=== PATIENT | female | born 1955 | race Caucasian/White ===

== ENCOUNTER → 2024-05-14 | Outpatient (CLI) | payer OTHER, SELFPAY ==
[2024-05-14 13:26] LABS: Basophils # (Auto) 0.1 Thou/mm3 (0.0-0.2); Basophils % (Auto) 1 % (0-2.5); Eosinophils # (Auto) 0.1 Thou/mm3 (0.0-0.5); Eosinophils % (Auto) 2 % (0-10); Hematocrit 38.1 % (36.0-46.0); Hemoglobin 12.6 g/dL (12.0-16.0); Immature Granulocytes % (Auto) 0 % (0-0); Immature Granulocytes Auto 0.02 Thou/mm3 (0.00-0.00); Lymphocytes # (Auto) 2.7 Thou/mm3 (1.0-4.8); Lymphocytes % (Auto) 36 % (10-50); Mean Corpuscular HGB Conc 33.1 g/dl (31.0-37.0); Mean Corpuscular Hemoglobin 30.6 pg (25.0-35.0); Mean Corpuscular Volume 93 fL (80-100); Monocytes # (Auto) 0.5 Thou/mm3 (0.0-0.8); Monocytes % (Auto) 7 % (0-12); Neutrophils # (Auto) 4.2 Thou/mm3 (1.8-7.7); Neutrophils % (Auto) 55 % (37-80); Nucleated Red Blood Cell % 0 /100 WBC (0); Platelet Count 272 Thou/mm3 (140-440); RDW Standard Deviation 45.7 fL (36.4-46.3); Red Blood Count 4.12 Miln/mm3 (4.00-5.20); White Blood Count 7.6 Thou/mm3 (3.6-11.0)
[2024-05-14 13:40] LABS: Alanine Aminotransferase 33 U/L (10-49); Albumin, Serum 4.4 gm/dL (3.4-4.8); Albumin/Globulin Ratio 1.6 (1.2-2.2); Alkaline Phosphatase 106 U/L (46-116); Anion Gap 7 (7-16); Aspartate Amino Transferase 24 U/L (0-34); BUN/Creatinine Ratio 16 Ratio (12-20); Bilirubin,Total 0.5 mg/dL (0.3-1.2); Blood Urea Nitrogen 14 mg/dL (9-23); Calcium 9.5 mg/dL (8.3-10.6); Calcium (Corrected) 9.5 mg/dL (8.5-10.1); Carbon Dioxide 28.7 mMol/L (20.0-31.0); Chloride 101 mMol/L (98-107); Creatinine (Component) 0.9 mg/dL (0.6-1.3); Globulin 2.7 gm/dL (2.3-3.5); Glucose 111 mg/dL (74-106); Osmolality,Calculated 275 (275-295); Potassium 4.4 mMol/L (3.4-5.1); Sodium 137 mMol/L (136-145); Total Protein 7.1 gm/dL (5.7-8.2); eGFR > 60 See Note
== END | disposition home or self-care (01) ==
LOC: COPL 11:59
PROVIDERS: PCP Family Medicine; Referring Provider Internal Medicine Hematology & Oncology; Visit Provider Internal Medicine Hematology & Oncology
DX: C48.1 Malignant neoplasm of specified parts of peritoneum (principal)
CPT/HCPCS: 36415; 80053; 85025; 86304

== ENCOUNTER → 2024-05-23 | Outpatient (CLI) | payer OTHER, SELFPAY ==
--- NOTE | 2024-05-23 09:00 | XR_ITS ---
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 3 mm slice thickness, from the hemidiaphragms to above the apices of the lungs. Mediastinal and lung density settings have been obtained. Intravenous contrast administered 60 cc Isovue-370. Noncontrast images have also been obtained. 2-D sagittal coronal images obtained. Low dose protocols were performed. One or more of the following dose reduction techniques were used; automated exposure control, adjustment of the mA and/or KV according to patient size, use of iterative reconstruction technique. Findings: No thoracic aortic aneurysm dilatation Pulmonary artery opacification is poor No pathologically paratracheal tracheobronchial or bronchopulmonary adenopathy 4 mm pulmonary nodule posterior right lung image 141 2 mm pulmonary nodule right lower lobe image 187 4 mm pulmonary nodule left lower lobe image 202 No liver or splenic lesion Absent gallbladder No pancreatic or adrenal mass No renal or ureteral calculi, no hydronephrosis No abdominal lymphadenopathy 10 mm left external iliac lymph node image 291 Absent uterus No adnexal mass Contracted urinary bladder Prominent osteopenia IMPRESSION: Pulmonary nodules as above, recommend 6 month follow-up CT chest without contrast 10 mm left external iliac lymph node, suggest PET CT scan follow-up
== END | disposition home or self-care (01) ==
PROVIDERS: PCP Internal Medicine Hematology; Referring Provider Student in an Organized Health Care Education/Training Program; Visit Provider Student in an Organized Health Care Education/Training Program
DX: R91.8 Other nonspecific abnormal finding of lung field (principal); C57.00 Malignant neoplasm of unspecified fallopian tube
CPT/HCPCS: 71270; 74178; A4649; Q9967

== ENCOUNTER → 2024-06-21 | Outpatient (CLI) | payer OTHER, SELFPAY ==
--- NOTE | 2024-06-21 09:30 | XR_ITS ---
Examination: Breast ultrasound, unilateral, right complete Date and time of exam: June 21, 2024 0910 hours INDICATIONS: Diagnosis genetic susceptibility to malignant neoplasm of the breast, family history breast cancer including sister, personal history left breast cancer 2001 post chemotherapy radiation therapy and lumpectomy 2008, ultrasound December 20, 2023 scar formation right breast 2:00 position 14 x 8 x 9 mm Technique: Real-time cooper scale ultrasonographic imaging performed right breast including all 4 quadrants as well as nipple retroareolar and axillary region. Findings: 2:00 scarring with calcification of breast biopsy marker IMPRESSION: BI-RADS Category 3: Probably benign findings 6 months bilateral breast sonography follow-up is needed
== END | disposition home or self-care (01) ==
LOC: SDIM 09:05
PROVIDERS: PCP Nurse Practitioner Family; Referring Provider Nurse Practitioner Family; Visit Provider Nurse Practitioner Family
DX: R92.8 Other abnormal and inconclusive findings on diagnostic imaging of breast (principal); Z85.3 Personal history of malignant neoplasm of breast
CPT/HCPCS: 76641

== ENCOUNTER → 2024-07-31 | Outpatient (CLI) | payer OTHER, SELFPAY ==
[2024-07-31 10:38] LABS: Basophils % (Auto) 1 % (0-2.5); Eosinophils # (Auto) 0.1 Thou/mm3 (0.0-0.5); Eosinophils % (Auto) 1 % (0-10); Hematocrit 39.5 % (36.0-46.0); Hemoglobin 13.2 g/dL (12.0-16.0); Immature Granulocytes % (Auto) 0 % (0-0); Immature Granulocytes Auto 0.02 Thou/mm3 (0.00-0.00); Lymphocytes # (Auto) 2.3 Thou/mm3 (1.0-4.8); Lymphocytes % (Auto) 37 % (10-50); Mean Corpuscular HGB Conc 33.4 g/dl (31.0-37.0); Mean Corpuscular Hemoglobin 30.5 pg (25.0-35.0); Mean Corpuscular Volume 91 fL (80-100); Monocytes # (Auto) 0.4 Thou/mm3 (0.0-0.8); Monocytes % (Auto) 6 % (0-12); Neutrophils # (Auto) 3.4 Thou/mm3 (1.8-7.7); Neutrophils % (Auto) 55 % (37-80); Nucleated Red Blood Cell % 0 /100 WBC (0); Platelet Count 279 Thou/mm3 (140-440); RDW Standard Deviation 42.8 fL (36.4-46.3); Red Blood Count 4.33 Miln/mm3 (4.00-5.20); White Blood Count 6.3 Thou/mm3 (3.6-11.0)
[2024-07-31 10:51] LABS: Alanine Aminotransferase 38 U/L (10-49); Albumin, Serum 4.5 gm/dL (3.4-4.8); Albumin/Globulin Ratio 1.5 (1.2-2.2); Alkaline Phosphatase 102 U/L (46-116); Anion Gap 9 (7-16); Aspartate Amino Transferase 28 U/L (0-34); BUN/Creatinine Ratio 18 Ratio (12-20); Bilirubin,Total 0.5 mg/dL (0.3-1.2); Blood Urea Nitrogen 14 mg/dL (9-23); Calcium 10.4 mg/dL (8.3-10.6); Calcium (Corrected) 10.4 mg/dL (8.5-10.1); Chloride 105 mMol/L (98-107); Creatinine (Component) 0.8 mg/dL (0.6-1.3); Glucose 115 mg/dL (74-106); Osmolality,Calculated 286 (275-295); Potassium 4.9 mMol/L (3.4-5.1); Sodium 143 mMol/L (136-145); Total Protein 7.5 gm/dL (5.7-8.2); eGFR > 60 See Note
== END | disposition home or self-care (01) ==
LOC: COPL 08:57
PROVIDERS: PCP Family Medicine; Referring Provider Internal Medicine Hematology; Visit Provider Internal Medicine Hematology
DX: C48.1 Malignant neoplasm of specified parts of peritoneum (principal)
CPT/HCPCS: 36415; 80053; 85025; 86304

== ENCOUNTER → 2024-09-19 | Outpatient (CLI) | payer OTHER, SELFPAY ==
[2024-09-19 08:36] LABS: Basophils # (Auto) 0.1 Thou/mm3 (0.0-0.2); Basophils % (Auto) 1 % (0-2.5); Eosinophils # (Auto) 0.1 Thou/mm3 (0.0-0.5); Eosinophils % (Auto) 2 % (0-10); Hematocrit 38.8 % (36.0-46.0); Hemoglobin 12.7 g/dL (12.0-16.0); Immature Granulocytes % (Auto) 0 % (0-0); Immature Granulocytes Auto 0.01 Thou/mm3 (0.00-0.00); Lymphocytes # (Auto) 3.1 Thou/mm3 (1.0-4.8); Lymphocytes % (Auto) 47 % (10-50); Mean Corpuscular HGB Conc 32.7 g/dl (31.0-37.0); Mean Corpuscular Hemoglobin 29.5 pg (25.0-35.0); Mean Corpuscular Volume 90 fL (80-100); Monocytes # (Auto) 0.4 Thou/mm3 (0.0-0.8); Monocytes % (Auto) 7 % (0-12); Neutrophils # (Auto) 2.9 Thou/mm3 (1.8-7.7); Neutrophils % (Auto) 43 % (37-80); Nucleated Red Blood Cell % 0 /100 WBC (0); Platelet Count 294 Thou/mm3 (140-440); RDW Standard Deviation 42.3 fL (36.4-46.3); White Blood Count 6.6 Thou/mm3 (3.6-11.0)
[2024-09-19 08:45] LABS: Alanine Aminotransferase 27 U/L (10-49); Albumin, Serum 4.4 gm/dL (3.4-4.8); Albumin/Globulin Ratio 1.5 (1.2-2.2); Alkaline Phosphatase 109 U/L (46-116); Anion Gap 7 (7-16); Aspartate Amino Transferase 20 U/L (0-34); BUN/Creatinine Ratio 19 Ratio (12-20); Bilirubin,Total 0.5 mg/dL (0.3-1.2); Blood Urea Nitrogen 17 mg/dL (9-23); Calcium 9.9 mg/dL (8.3-10.6); Calcium (Corrected) 9.9 mg/dL (8.5-10.1); Carbon Dioxide 29.3 mMol/L (20.0-31.0); Chloride 105 mMol/L (98-107); Creatinine (Component) 0.9 mg/dL (0.6-1.3); Glucose 108 mg/dL (74-106); Osmolality,Calculated 283 (275-295); Potassium 4.4 mMol/L (3.4-5.1); Sodium 141 mMol/L (136-145); Total Protein 7.4 gm/dL (5.7-8.2); eGFR > 60 See Note
== END | disposition home or self-care (01) ==
LOC: COPL 06:53
PROVIDERS: PCP Family Medicine; Referring Provider Internal Medicine Hematology; Visit Provider Internal Medicine Hematology
DX: C48.1 Malignant neoplasm of specified parts of peritoneum (principal)
CPT/HCPCS: 36415; 80053; 85025; 86304

== ENCOUNTER → 2024-10-15 | Outpatient (CLI) | payer OTHER, SELFPAY ==
--- NOTE | 2024-10-15 08:33 | XR_ITS ---
Examination: Lumbar spine, 5 views Technique: Lumbar spine AP, lateral, coned lateral lower lumbar spine, bilateral obliques 5 views Exam date and time: October 15, 2024 0945 hours INDICATIONS: Low back pain beginning 2017. FINDINGS: Prominent osteopenia Diffuse moderate facet arthropathy. No lumbar fracture Mild lumbar spondylosis Mild to moderate diffuse lumbar disc narrowing most prominent L4-L5, L5-S1 IMPRESSION: Mild to moderate diffuse lumbar degenerative disc disease
--- NOTE | 2024-10-15 08:33 | XR_ITS ---
Examination: Cervical spine 3 views Technique one AP lateral coned AP odontoid cervical spine 3 views Exam date and time: October 15, 2024 0946 hours Comparison March 26, 2021 INDICATIONS: Neck pain beginning 2016. FINDINGS: 3 mm anterolisthesis C6 on C5 No cervical fracture Intact odontoid Advanced degenerative disc disease C5-C6 C6-C7 Heavy carotid vascular calcification IMPRESSION: Advanced degenerative disc disease C5-C6, C6-C7 Incidental note heavy carotid vascular calcification, consider carotid Doppler sonography follow-up
--- NOTE | 2024-10-15 08:33 | XR_ITS ---
Examination:Right hip AP, lateral, AP pelvis 3 views Technique: Hip AP lateral, AP pelvis, 3 views Exam date and time:October 15, 2024 0945 hours INDICATIONS: Right hip pain beginning 2017. FINDINGS: No right hip fracture or dislocation Greater trochanteric bursitis right hip No significant hip joint narrowing bones of the pelvis intact IMPRESSION: Greater trochanteric bursitis right hip.
== END | disposition home or self-care (01) ==
LOC: CDIM 08:26
PROVIDERS: PCP Family Medicine; Referring Provider Nurse Practitioner Family; Visit Provider Nurse Practitioner Family
DX: M50.322 Other cervical disc degeneration at C5-C6 level (principal); M51.16 Intervertebral disc disorders with radiculopathy, lumbar region; M70.61 Trochanteric bursitis, right hip
CPT/HCPCS: 72040; 72110; 73502

== ENCOUNTER → 2024-11-14 | Outpatient (CLI) | payer OTHER, SELFPAY ==
--- NOTE | 2024-11-14 | XR_ITS ---
Examination: Carotid arterial duplex scan, ultrasound. Date and time of exam: November 14, 2024 0718 hours INDICATIONS: Soft tissue vascular calcifications on C-spine October 15, 2024 Technique: Multiple sonographic images have been obtained of the carotid arteries and vertebral arteries, B-mode/grayscale imaging and Doppler spectral analysis and color flow Peak systolic and diastolic velocities have been recorded. Systolic diastolic ratios have been calculated. Findings: Right peak systolic velocities: Distal internal carotid artery peak systolic velocity is 1.0 M/sec Proximal internal carotid artery peak systolic velocity is 0.8 M/sec Carotid bifurcation peak systolic velocity is 0.5 M/sec External carotid artery peak systolic velocity is 0.6 M/sec Vertebral artery flow is antegrade. Left peak systolic velocities: Distal internal carotid artery peak systolic velocity is 1.0 M/sec Proximal internal carotid artery peak systolic velocity is 1.6 M/sec Carotid bifurcation peak systolic velocity is 0.7 M/sec External carotid artery peak systolic velocity is 0.5 M/sec Vertebral artery flow is antegrade Doppler waveform analysis demonstrates spectral broadening on the left Impression: Right internal carotid artery demonstrates 10-30% stenosis. Left internal carotid artery demonstrates 30-50% stenosis.
[2024-11-14 08:19] LABS: Basophils % (Auto) 1 % (0-2.5); Eosinophils # (Auto) 0.1 Thou/mm3 (0.0-0.5); Eosinophils % (Auto) 2 % (0-10); Hematocrit 38.3 % (36.0-46.0); Hemoglobin 13.1 g/dL (12.0-16.0); Immature Granulocytes % (Auto) 0 % (0-0); Immature Granulocytes Auto 0.01 Thou/mm3 (0.00-0.00); Lymphocytes # (Auto) 2.4 Thou/mm3 (1.0-4.8); Lymphocytes % (Auto) 42 % (10-50); Mean Corpuscular HGB Conc 34.2 g/dl (31.0-37.0); Mean Corpuscular Hemoglobin 30.5 pg (25.0-35.0); Mean Corpuscular Volume 89 fL (80-100); Monocytes # (Auto) 0.4 Thou/mm3 (0.0-0.8); Monocytes % (Auto) 8 % (0-12); Neutrophils # (Auto) 2.6 Thou/mm3 (1.8-7.7); Neutrophils % (Auto) 47 % (37-80); Nucleated Red Blood Cell % 0 /100 WBC (0); Platelet Count 252 Thou/mm3 (140-440); RDW Standard Deviation 43.3 fL (36.4-46.3); White Blood Count 5.6 Thou/mm3 (3.6-11.0)
[2024-11-14 08:33] LABS: Alanine Aminotransferase 19 U/L (10-49); Albumin, Serum 4.4 gm/dL (3.4-4.8); Albumin/Globulin Ratio 1.6 (1.2-2.2); Alkaline Phosphatase 99 U/L (46-116); Anion Gap 12 (7-16); Aspartate Amino Transferase 19 U/L (0-34); BUN/Creatinine Ratio 12 Ratio (12-20); Bilirubin,Total 0.5 mg/dL (0.3-1.2); Blood Urea Nitrogen 11 mg/dL (9-23); Calcium 9.4 mg/dL (8.3-10.6); Calcium (Corrected) 9.4 mg/dL (8.5-10.1); Carbon Dioxide 28.4 mMol/L (20.0-31.0); Chloride 105 mMol/L (98-107); Creatinine (Component) 0.9 mg/dL (0.6-1.3); Globulin 2.7 gm/dL (2.3-3.5); Glucose 105 mg/dL (74-106); Osmolality,Calculated 288 (275-295); Potassium 4.4 mMol/L (3.4-5.1); Sodium 145 mMol/L (136-145); Total Protein 7.1 gm/dL (5.7-8.2); eGFR > 60 See Note
== END | disposition home or self-care (01) ==
LOC: CDIM 07:30
PROVIDERS: PCP Family Medicine; Referring Provider Internal Medicine; Visit Provider Nurse Practitioner Family
DX: R93.89 Abnormal findings on diagnostic imaging of other specified body structures (principal); C48.1 Malignant neoplasm of specified parts of peritoneum
CPT/HCPCS: 36415; 80053; 85025; 86304; 93880

== ENCOUNTER → 2024-11-21 | Outpatient (CLI) | payer OTHER, SELFPAY ==
--- NOTE | 2024-11-21 10:30 | XR_ITS ---
Examination: CT chest with intravenous contrast CT abdomen with intravenous contrast CT pelvis with intravenous contrast CT chest without intravenous contrast CT abdomen without intravenous contrast CT pelvis without intravenous contrast 2-D coronal and sagittal reconstructions Time of exam: November 21, 2024 1052 hours Comparison May 23, 2024 INDICATIONS: Diagnosis malignant neoplasm unspecified fallopian tube April 2023, post hysterectomy, pulmonary nodules, 10 mm left external iliac lymph node on CT chest abdomen pelvis May 23, 2024, restaging CTDI: vol (mGy) : 25.4 DLP: (mGycm): 1989 Technique: Multiple axial images of the chest, abdomen and pelvis with intravenous contrast, 3.0 mm slice thickness. Images obtained post intravenous injection Isovue 370 60 cc. 2-D sagittal and coronal reconstructions. Low dose protocols were performed. One or more of the following dose reduction techniques were used; automated exposure control, adjustment of the mA and/or KV according to patient size, use of iterative reconstruction technique. Findings: Mild enlargement cardiac contour No paratracheal tracheobronchial or bronchopulmonary adenopathy Enlarging pulmonary nodules Nodule posterior right lung measures 5 mm compared to 3.5 mm on May 23, 2024 No definite new pulmonary nodules Absent gallbladder No interval liver or splenic lesion No pancreatic mass No hydronephrosis Stable 4 mm lower left lateral periaortic lymph node Stable 2 mm left common iliac lymph node Stable 10 mm left external iliac lymph node IMPRESSION: One of the pulmonary nodules in the posterior lung measures 5 mm on the current study compared to 3.5 mm on May 31, 2024, no new pulmonary nodules Recommend continued 6 month follow-up CT chest without contrast Stable abdominal and pelvic lymphadenopathy
== END | disposition home or self-care (01) ==
PROVIDERS: PCP Nurse Practitioner Family; Referring Provider Internal Medicine; Visit Provider Internal Medicine
DX: R59.0 Localized enlarged lymph nodes (principal); R91.8 Other nonspecific abnormal finding of lung field; C48.1 Malignant neoplasm of specified parts of peritoneum
CPT/HCPCS: 71270; 74178; A4649; Q9967

== ENCOUNTER → 2024-11-25 | Outpatient (CLI) | payer OTHER, SELFPAY ==
--- NOTE | 2024-11-25 08:00 | XR_ITS ---
Examination: MRI abdomen with intravenous contrast. MRI abdomen without intravenous contrast. 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 Transverse images, TR 6020, TE 107. T1 weighted transverse images, TR 582, TE 9.5. T2-weighted sagittal images, TR 4000, TE 105. T2-weighted sagittal images, TR 4000, TE 5. Coronal images, TR 4210, TE 107. Axial and coronal images are obtained post 20 cc intravenous injection, gadolinium. Findings: No focal liver lesions or intrahepatic biliary tract dilatation Gallbladder not visualized No common hepatic or common bile duct stones No pancreatic mass or peripancreatic edema Negative for splenomegaly Minimal perinephric stranding No hydronephrosis Aorta normal size No ascites Postcontrast images demonstrate no abnormal enhancing liver splenic or renal lesion No abdominal lymphadenopathy IMPRESSION: No abdominal mass or abdominal lymphadenopathy
== END | disposition home or self-care (01) ==
PROVIDERS: PCP Surgery; Referring Provider Surgery; Visit Provider Surgery
DX: Z15.01 Genetic susceptibility to malignant neoplasm of breast (principal); Z15.02 Genetic susceptibility to malignant neoplasm of ovary; Z15.09 Genetic susceptibility to other malignant neoplasm
CPT/HCPCS: 74183; A9579

== ENCOUNTER → 2024-12-05 | Outpatient (CLI) | payer OTHER, SELFPAY ==
--- NOTE | 2024-12-05 08:00 | XR_ITS ---
Examination: MRI breasts bilateral without intravenous contrast MRI breast bilateral with intravenous contrast Date and time: December 05, 2024 0831 hours, comparison mammogram March 14, 2024 INDICATIONS: Bilateral breast carcinoma history TECHNIQUE AND FINDINGS: Bilateral breast MRI images pre and post 20 cc gadolinium Heterogeneous breast signal with mild background breast enhancement Magnetic susceptibility artifact inner right breast with extensive architectural distortion and scarring inner right breast No interval suspicious masses No chest wall lesions No interval axillary lymphadenopathy Postcontrast images demonstrate no focal area of rapid wash-in rapid washout IMPRESSION: BI-RADS Category 2: Benign findings Recommend follow-up mammography March 2025 as well as bilateral breast sonography
== END | disposition home or self-care (01) ==
LOC: SMRI 07:31
PROVIDERS: PCP Nurse Practitioner Family; Referring Provider Nurse Practitioner Women's Health; Visit Provider Nurse Practitioner Women's Health
DX: R92.323 Mammographic fibroglandular density, bilateral breasts (principal); Z15.01 Genetic susceptibility to malignant neoplasm of breast; Z15.09 Genetic susceptibility to other malignant neoplasm; Z15.02 Genetic susceptibility to malignant neoplasm of ovary; Z85.3 Personal history of malignant neoplasm of breast
CPT/HCPCS: 77049; A9579; C8908

== ENCOUNTER → 2024-12-20 | Outpatient (CLI) | payer OTHER, SELFPAY ==
--- NOTE | 2024-12-20 09:00 | XR_ITS ---
Examination: Breast ultrasound complete, bilateral Date and time of exam: December 20, 2024 0846 hours Comparison June 21, 2024 right breast sonogram INDICATIONS: Family history breast cancer, personal history right and left breast cancer Technique: Real-time grayscale ultrasonographic imaging bilateral breasts, including all 4 quadrants as well as nipple retroareolar and axillary regions. Findings: Sonographic images right breast 2:00 scarring with shadowing 7 x 5 mm 12:00 hyperechoic nodule 5 x 5 mm which may represent a lipoma Sonographic images left breast No cystic or solid mass IMPRESSION: BI-RADS Category 3: Probably benign findings Recommend 1 additional 6 month right breast sonogram follow-up to document stable size of scarring 2:00 position right breast
== END | disposition home or self-care (01) ==
LOC: SDIM 08:24
PROVIDERS: PCP Nurse Practitioner Family; Referring Provider Nurse Practitioner Family; Visit Provider Nurse Practitioner Family
DX: R92.8 Other abnormal and inconclusive findings on diagnostic imaging of breast (principal)
CPT/HCPCS: 76641

== ENCOUNTER → 2024-12-26 | Outpatient (CLI) | payer OTHER, SELFPAY ==
[2024-12-26 08:43] LABS: Glucose Estimated Average 105 mg/dL (80-131); Hemoglobin A1C 5.3 % Hgb (4.8-6.0)
[2024-12-26 08:54] LABS: Cardiac Risk Estimate 3.2 RATIO (3.7-5.6); Cholesterol 173 mg/dL (132-200); HDL Cholesterol 54 mg/dL (40-60); LDL Cholesterol,Calculated 100 mg/dL (0-130); Thyroid Stimulating Hormone 4.04 uIU/mL (0.55-4.78); Triglycerides 96 mg/dL (30-150)
== END | disposition home or self-care (01) ==
LOC: COPL 07:09
PROVIDERS: PCP Family Medicine; Referring Provider Nurse Practitioner Family; Visit Provider Nurse Practitioner Family
DX: E03.9 Hypothyroidism, unspecified (principal); I65.23 Occlusion and stenosis of bilateral carotid arteries; R73.03 Prediabetes
CPT/HCPCS: 36415; 80061; 83036; 84443

== ENCOUNTER → 2025-04-02 | Outpatient (CLI) | payer OTHER, SELFPAY ==
[2025-04-02 08:38] LABS: Basophils # (Auto) 0.0 Thou/mm3 (0.0-0.2); Basophils % (Auto) 1 % (0-2.5); Eosinophils # (Auto) 0.1 Thou/mm3 (0.0-0.5); Eosinophils % (Auto) 2 % (0-10); Hematocrit 41.7 % (36.0-46.0); Hemoglobin 13.8 g/dL (12.0-16.0); Immature Granulocytes Auto 0.01 Thou/mm3 (0.00-0.00); Lymphocytes # (Auto) 2.8 Thou/mm3 (1.0-4.8); Lymphocytes % (Auto) 42 % (10-50); Mean Corpuscular HGB Conc 33.1 g/dl (31.0-37.0); Mean Corpuscular Hemoglobin 30.7 pg (25.0-35.0); Mean Corpuscular Volume 93 fL (80-100); Monocytes # (Auto) 0.5 Thou/mm3 (0.0-0.8); Monocytes % (Auto) 7 % (0-12); Neutrophils # (Auto) 3.3 Thou/mm3 (1.8-7.7); Neutrophils % (Auto) 49 % (37-80); Nucleated Red Blood Cell # 0.00 Thou/mm3 (0.00-0.00); Nucleated Red Blood Cell % 0 /100 WBC (0); Platelet Count 279 Thou/mm3 (140-440); RDW Standard Deviation 44.5 fL (36.4-46.3); Red Blood Count 4.50 Miln/mm3 (4.00-5.20); White Blood Count 6.7 Thou/mm3 (3.6-11.0)
[2025-04-02 08:47] LABS: Alanine Aminotransferase 27 U/L (10-49); Albumin, Serum 4.7 gm/dL (3.4-4.8); Albumin/Globulin Ratio 1.9 (1.2-2.2); Alkaline Phosphatase 88 U/L (46-116); Anion Gap 10 (7-16); Aspartate Amino Transferase 23 U/L (0-34); BUN/Creatinine Ratio 12 Ratio (12-20); Bilirubin,Total 0.6 mg/dL (0.3-1.2); Blood Urea Nitrogen 11 mg/dL (9-23); Calcium 9.8 mg/dL (8.3-10.6); Calcium (Corrected) 9.8 mg/dL (8.5-10.1); Carbon Dioxide 27.0 mMol/L (20.0-31.0); Chloride 106 mMol/L (98-107); Creatinine (Component) 0.9 mg/dL (0.6-1.3); Globulin 2.5 gm/dL (2.3-3.5); Glucose 117 mg/dL (74-106); Osmolality,Calculated 285 (275-295); Potassium 4.6 mMol/L (3.4-5.1); Sodium 143 mMol/L (136-145); Total Protein 7.2 gm/dL (5.7-8.2); eGFR > 60 See Note
[2025-04-02 09:06] LABS: CA 125 4.0 U/mL (<30.2)
== END | disposition home or self-care (01) ==
LOC: COPL 07:03
PROVIDERS: PCP Family Medicine; Referring Provider Internal Medicine; Visit Provider Internal Medicine
DX: C48.1 Malignant neoplasm of specified parts of peritoneum (principal)
CPT/HCPCS: 36415; 80053; 85025; 86304

== ENCOUNTER → 2025-04-14 | Outpatient (CLI) | payer OTHER, SELFPAY ==
--- NOTE | 2025-04-14 08:15 | XR_ITS ---
Examination: Screening digital mammography, bilateral Computer aided detection 3-D breast Tomosynthesis, bilateral Date and time of exam: 04/14/2025, 8:25 a.m. Comparisons: 04/10/2024 Indications: Screening Technique: Nonmagnified MLO, CC views of the breasts to been obtained, reconstructed from 3-D Tomosynthesis images. R2 computer aided detection program utilized for evaluation of suspicious masses and/or abnormal calcifications. 3-D Tomosynthesis images obtained. Technologist: Findings: The breasts are heterogeneously dense, which may obscure small masses. Stable bilateral post operative changes. Evidence of abnormal masses or suspicious calcifications. Impression: BI-RADS category 2: Benign findings Recommend 1 year follow-up mammogram
== END | disposition home or self-care (01) ==
PROVIDERS: PCP Nurse Practitioner Family; Referring Provider Nurse Practitioner Family; Visit Provider Nurse Practitioner Family
DX: Z12.31 Encounter for screening mammogram for malignant neoplasm of breast (principal); R92.323 Mammographic fibroglandular density, bilateral breasts; R92.1 Mammographic calcification found on diagnostic imaging of breast
CPT/HCPCS: 77063; 77067